=== PATIENT | male | born 1990 | race Caucasian/White ===

== ENCOUNTER 2018-06-25 20:58 | Emergency (ER) | payer OTHER ==
[2018-06-25] MEDS: PROPARACAINE HCL 0.5% OPTH 15 ML BOTTLE OD ONE (21:14)
[2018-06-25] MEDS: OPTH IRRIGATION SOLUTION 120 ML BTL OD ONE (21:15)
[2018-06-25 21:26] VITALS: BP 125/82
[2018-06-25] MEDS: PHARMACY KEY 1 EACH EACH MC ONE (21:40)
[2018-06-25] MEDS: GENTAMICIN SULFATE 0.3% OPTH SOL OP ONE (21:40)
[2018-06-25] MEDS: HYDROcodone /APAP 5/325 1 EACH TABLET PO ONE (21:41)
--- NOTE | 2018-06-25 21:41 | ED Physician Documentation ---
Eye Problem - HISTORIAN Historian: patient - HPI Stated Complaint: right eye pain Chief Complaint: Eye Problems Onset: minutes Location: right eye Severity: moderate Apparent Injury: no Context: foreign body Further Comments: yes (28 year old patient presents with right eye redness and pain. Patient states a piece of wood fly into his right eye when he was sawing a board earlier tonight. Patient reports irrigating the eye with wash and tap water. C/O increased pain.) - ROS CONST: no problems MS/SKIN/LYMPH: denies: weakness, numbness, neck pain, back pain, ankle swelling, leg swelling, rash, other CVS/RESP: none EYES/ENT: none GI/: denies: problems urinating, nausea, vomiting, other NEURO: denies: headache - PAST HX Past History: none Allergies/Adverse Reactions: Allergies Allergy/AdvReac Type Severity Reaction Status Date / Time Sulfa (Sulfonamide Allergy Verified 06/25/18 21:09 Antibiotics) Home Medications: Ambulatory Orders Medication Instructions Recorded NK 06/25/18 - SOCIAL HX Smoking History: non-smoker - FAMILY HX Family History: denies: none - VITAL SIGNS Vital Signs: Vital Signs Temp Pulse Resp BP Pulse Ox 98.2 F 72 20 125/82 96 06/25/18 21:06 06/25/18 21:06 06/25/18 21:06 06/25/18 21:06 06/25/18 21:06 - REVIEWED ASSESSMENTS Nursing Assessment Reviewed: Yes Vitals Reviewed: Yes Progress - Progress Progress: Irrigated with eye wash after exam. No ophthalmic ointment available; pharmacist consulted. None in pharmacy. Will start on solution and change to ointment in AM. Reviewed discharge plan; verbalized understanding. Questions answered. ED Results Lab/Radiology - Orders Orders: ED Orders Category Date Time Status Gentamicin Sulfate [Gentak 0.3% Opth Faby] Med 06/25/18 21:34 Discontinued 2 drop OP NOW ONE HYDROcodone /APAP 5/325 [[place] 5/325] Med 06/25/18 21:35 Discontinued 2 each PO NOW ONE Opth Irrigation Solution [Eye Wash Solution] Med 06/25/18 21:11 Discontinued 120 ml OD NOW ONE [facility] [place] Med 06/25/18 21:27 Discontinued 1 each [facility] .STK-MED ONE Proparacaine HCl 0.5% Opth [Ophthaine 0.5% Opth] Med 06/25/18 21:10 Discontinued 2 drop OD NOW ONE Eye Problem Physical Exam - Physical Exam General Appearance: moderate distress Examined with Slit Lamp: No Visual Acuity: see nursing assessment Eyelids: nml inspection Conjunctiva and Sclera: injected (R) Corneas: nml inspection (left only), fluorescein dye uptake (R) (corneal abrasion at 4 O'clock position - 2 mm), examined with fluorescein (R). No: foreign body (R), foreign body (L) EOM: intact Pupils: equal Head/ENT: nml inspection, pharynx nml Skin: nml color, warm, skin intact Neck/Back: nml inspection, non-tender Respiratory: no resp distress CVS: reg rate & rhythm Neuro/Psych: oriented x3, neuro intact, mood/affect nml, CN's nml as tested Discharge Clincal Impression: Right corneal abrasion Qualifiers: Encounter type: initial encounter Qualified Code(s): S05.01XA - Injury of c onjunctiva and corneal abrasion without foreign body, right eye, initial encounter Referrals: Marie Latif MD [Primary Care Provider] - 2 Days Additional Instructions: Rest Tylenol or ibuprofen as needed per package direction for pain. Fill your antibiotic ointment in the morning and start using it. Discard the eye drops. Follow up with charge auditor as soon as possible for re-evaluation of the right eye. Do not wear contacts until seen by charge auditor and abrasion has completely healed. Return to ER if: you have decreased vision, increased pain or your symptoms become worse. Condition: Stable Disposition: 01 HOME, SELF-CARE Decision to Admit: NO Decision Time: 21:40
== END 2018-06-25 21:49 | disposition home or self-care (01) ==
LOC: ED 20:58
DX: S05.01XA Injury of conjunctiva and corneal abrasion without foreign body, right eye, initial encounter (principal); W45.8XXA Other foreign body or object entering through skin, initial encounter; Y93.89 Activity, other specified; Y92.9 Unspecified place or not applicable
CPT/HCPCS: 99283; A9270

== ENCOUNTER 2018-12-06 04:00 | Emergency (ER) | payer OTHER ==
--- NOTE | 2018-12-06 04:17 | ED Physician Documentation ---
Abdominal Pain - HISTORIAN Historian: patient - HPI Stated Complaint: epigastric pain Chief Complaint: Abdominal Pain Additonal Information: Patient presents to ED with a 2 month history of epigastric pain. Patient states he wok up tonight with epigastric pain, throbbing, nonradiating, 7/10. He vomited twice, which usually relieves his pain, however, this morning it did not. He states he has had 4-5 episodes of this pain over the past 2 months, usually at night. He denies shortness of breath, chest pain, diarrhea, constipation or fever. Onset: days ago (60) Duration: other (intermittent) Timing: still present Context: denies: out of country travel Severity: moderate Quality: other (throbbing) Associated Symptoms: nausea, vomiting. denies: fever, chills, bloody emesis, diarrhea Exacerbated by: nothing Relieved by: other (vomiting) Further Comments: no - ROS CONST: no problems GI/: denies: constipation CVS/RESP: denies: shortness of breath EYES/ENT: none MS/SKIN/LYMPH: none - SOCIAL HX Smoking History: non-smoker Alcohol Use: none Drug Use: none - FAMILY HX Family History: none - PAST HX Past History: none Ischemic Bowel Risk Factors: none Other History: none Surgeries/Procedures: none Home Medications: Ambulatory Orders Medication Instructions Recorded NK 06/25/18 Allergies/Adverse Reactions: Allergies Allergy/AdvReac Type Severity Reaction Status Date / Time Sulfa (Sulfonamide Allergy Mild Verified 12/06/18 04:21 Antibiotics) - VITAL SIGNS Vital Signs: Vital Signs Temp Pulse Resp BP Pulse Ox 98.1 F 50 L 16 130/79 98 12/06/18 04:00 12/06/18 04:00 12/06/18 04:00 12/06/18 04:00 12/06/18 04:00 - REVIEWED ASSESSMENTS Nursing Assessment Reviewed: Yes Vitals Reviewed: Yes ED Results Lab/Radiology - Lab Results Lab Results: wbc 9.7, Hgb 15.9, Hct 46.5, Plt 197 Sodium 142, Potassium 3.6, Cl 102, CO2 28, BUN 15, Cr 1.32, Lipase 198, LFTs WNL - Radiology Radiology Impressions: Report Submission Date: Dec 06, 2018 5:19:29 AM CDT Patient Study Name: NATALIE ESCOBEDO Date: Dec 06, 2018 4:50:37 AM CDT Modality Type: CT\SR Gender: M Description: CT ABD PELVIS W/ CON : 89 Institution: [facility] Physician: NABOR JENKINS CT abdomen and pelvis with contrast Clinical history: Epigastric abdominal pain. Nausea. Contrast administered: 90 mL of Omnipaque. Technique: CT of the abdomen pelvis is performed with intravenous administration of contrast. Sagittal and coronal reconstructions were performed by the technologist. Findings: Visualized lung bases are clear. The liver and spleen demonstrate normal attenuation without focal defect. Gallbladder wall appears thickened with a small amount of fluid in the gallbladder fossa. Rule out cholecystitis. There is no pancreatic or adrenal abnormality. The kidneys demonstrate symmetric enhancement. There is no retroperitoneal mass or significant adenopathy. Appendix is visualized and is within normal limits. Gas and stool are present throughout the colon. Bladder is unremarkable. There is no free fluid in the pelvis or abdomen. Impression: 1. Gallbladder wall thickening and minimal fluid in the gallbladder fossa. Rule out cholecystitis. 2. Negative appendix. Electronically signed on Dec 06, 2018 5:19:29 AM CDT by: Tommie Resendiz - Orders Orders: ED Orders Category Date Time Status Place IV Lock 1T Care 12/06/18 04:[address] ABD & PELVIS W/ CON Stat Exams 12/06/18 Ordered CBC/PLATELET/DIFF Routine Lab 12/06/18 04:20 Received CMP Routine Lab 12/06/18 04:19 Received LIPASE Stat Lab 12/06/18 04:19 Received Mag Hydrox/Aluminum Hyd/Simeth [Mylanta] Med 12/06/18 04:18 Discontinued 30 ml PO NOW ONE Pantoprazole Sodium [Protonix] 40 mg Med 12/06/18 04:18 Discontinued Sodium Chloride 0.9 % (Flush) [Normal Saline Flush] 10 ml IVP NOW Abdominal Pain Physical Exam - Physical Exam General Appearance: no acute distress, alert EENT: RYAN NECK: supple. No: lymphadenopathy RESPIRATORY: no resp distress, chest non-tender, breath sounds normal CVS: reg rate & rhythm, heart sounds normal ABDOMEN: soft, normal bowel sounds, tenderness (epigastric) BACK: normal inspection, no CVA tenderness SKIN: warm/dry, normal color EXTREMITIES: non-tender NEURO: oriented X3 Vital Signs: Vital Signs Temp Pulse Resp BP Pulse Ox 98.1 F 50 L 16 130/79 98 12/06/18 04:00 12/06/18 04:00 12/06/18 04:00 12/06/18 04:00 12/06/18 04:00 Discharge Clincal Impression: Biliary colic Referrals: Marie Latif MD [Primary Care Provider] - 2 Days Additional Instructions: 1. Follow up with PCP today. Discuss Ultrasound of gallbladder and referral to surgeon for gallbladder. 2. Avoid fatty foods 3. Tylenol 650mg every 4 hours and/or Ibuprofen 600mg every 6 hours as needed for pain 4. Zofran every 8 hours as needed for nausea/abdominal pain 5. Return to ER for new or worsening symptoms Condition: Stable Disposition: 01 HOME, SELF-CARE Decision to Admit: NO Date of Decison to Admit: 12/06/18 Decision Time: 05:26
[2018-12-06] MEDS ORDERED: MAG HYDROX/ALUMINUM HYD/SIMETH 30 ML UDC PO ONE (04:18)
[2018-12-06] MEDS: PANTOPRAZOLE SODIUM 40 MG in SODIUM CHLORIDE 0.9 % (FLUSH) 10 ML IVP ONE ×2 (04:22→04:24)
[2018-12-06 05:55] VITALS: BP 112/63
--- NOTE | 2018-12-06 06:31 | Diagnostic Imaging Report ---
NABOR JENKINS [facility] [id number] [facility] [address] [place], [place]. [address] Report Submission Date: Dec 06, 2018 5:19:29 AM CDT Patient Study Name: NATALIE ESCOBEDO Date: Dec 06, 2018 4:50:37 AM CDT Modality Type: CT\SR Gender: M Description: CT ABD PELVIS W/ CON : 91 Institution: [facility] Physician: NABOR JENKINS CT abdomen and pelvis with contrast Clinical history: Epigastric abdominal pain. Nausea. Contrast administered: 90 mL of Omnipaque. Technique: CT of the abdomen pelvis is performed with intravenous administration of contrast. Sagittal and coronal reconstructions were performed by the technologist. Findings: Visualized lung bases are clear. The liver and spleen demonstrate normal attenuation without focal defect. Gallbladder wall appears thickened with a small amount of fluid in the gallbladder fossa. Rule out cholecystitis. There is no pancreatic or adrenal abnormality. The kidneys demonstrate symmetric enhancement. There is no retroperitoneal mass or significant adenopathy. Appendix is visualized and is within normal limits. Gas and stool are present throughout the colon. Bladder is unremarkable. There is no free fluid in the pelvis or abdomen. Impression: 1. Gallbladder wall thickening and minimal fluid in the gallbladder fossa. Rule out cholecystitis. 2. Negative appendix. Electronically signed on Dec 06, 2018 5:19:29 AM CDT by: Tommie LOW
[2018-12-06 09:28] LABS: eGFR (Non-African) > 60
[2018-12-06 09:29] LABS: BASOPHILS % 0.7 % (0.0-1.5); NEUTROPHILS # 5.1 # k/uL (1.4-7.7)
== END 2018-12-06 05:50 | disposition home or self-care (01) ==
LOC: ED 04:00
DX: K80.50 Calculus of bile duct without cholangitis or cholecystitis without obstruction (principal)
CPT/HCPCS: 74177; 80053; 83690; 85025; 96374; 99283; 99284; Q9967; S1016